=== PATIENT | male | born 1980 | race African-American/Black ===

== ENCOUNTER 2019-06-24 05:19 | Emergency (ER) | payer MEDICAID ==
[~2019-06-24] VITALS: Ht 188 cm; Wt 109.1 kg
[2019-06-24 05:30] VITALS: Ht 188 cm; Wt 109.1 kg
[2019-06-24] MEDS ORDERED: GLUCOPHAGE500 MG PO (05:34)
[2019-06-24] MEDS ORDERED: LISINOPRIL5 MG PO (05:35)
[2019-06-24] MEDS ORDERED: LIPITOR40 MG PO (05:35)
[2019-06-24] MEDS ORDERED: ASPIRIN EC81 M1 PO (05:36)
[2019-06-24] MEDS ORDERED: COREG 3.1253.125 MG PO (05:36)
[2019-06-24] MEDS ORDERED: GLYBURIDE5 M1 PO (05:36)
[2019-06-24 05:55] LABS: BASOPHILS 0.6 % (0-2); EOSINOPHILS 7.2 % (0-7); HEMATOCRIT 37.5 % (42.0-54.0); IMMATURE GRANULOCYTES 0.2 % (0-5); LYMPHOCYTES 40.3 % (15-50); MCH 31.2 pg (26.0-34.0); MCHC 34.7 g/dL (31.0-37.0); MCV 89.9 fL (80.0-100.0); MEAN PLATELET VOLUME 11.2 fL (7.4-10.4); MONOCYTES 9.6 % (2-11); NEUTROPHILS 42.1 % (40-80); RBC 4.17 10x6/uL (4.20-6.10); RDW 12.4 % (11.5-14.5); WBC 6.2 10x3/uL (4.8-10.8)
[2019-06-24 06:18] LABS: ALBUMIN 3.4 g/dL (3.4-5.0); ALKALINE PHOSPHATASE 77 U/L (46-116); ALT (SGPT) 30 U/L (10-68); BILIRUBIN - TOTAL 0.18 mg/dL (0.2-1.3); CALC OSMOLALITY 285 mosm/kg (275-300); CALCIUM 9.4 mg/dL (8.5-10.1); CARBON DIOXIDE 29.7 mmol/L (21.0-32.0); CHLORIDE - SERUM 103 mmol/L (98-107); CREATININE - SERUM 1.1 mg/dL (0.6-1.3); GLUCOSE 230 mg/dL (74-106); PLATELET COUNT 230 10x3/uL (130-400); PROTEIN - SERUM 7.1 g/dL (6.4-8.2); SODIUM 139 mmol/L (136-145); UREA NITROGEN 16 mg/dL (7-18); eGFR NON AFRICAN AMERICAN 80 mL/min (90-120)
[2019-06-24 06:20] LABS: LIPASE 357 U/L (73-393); MAGNESIUM - SERUM 1.8 mg/dL (1.8-2.4); PRO BNP 17 pg/mL (0-125)
[2019-06-24 06:21] LABS: TROPONIN-I < 0.017 ng/mL (0.000-0.060)
[2019-06-24 06:53] VITALS: BP 126/76
== END 2019-06-24 06:54 | disposition home or self-care (01) ==
LOC: D.ER 05:19
PROVIDERS: Family Medicine
DX: R07.9 Chest pain, unspecified (principal); E11.9 Type 2 diabetes mellitus without complications